=== PATIENT | male | born 1950 | race Two or more races ===

== ENCOUNTER 2020-08-02 08:55 | Emergency (ER) | payer OTHER, MEDICAID ==
[~2020-08-02] VITALS: Ht 170.2 cm; Wt 98.0 kg
[~2020-08-02 08:55] MED LIST: GABA-1181 PO; IBUP-2071 PO; INSU10VI3 SQ; LIRA0.6P SQ; LISI-894 PO
[2020-08-02 09:04] VITALS: BP 140/82
== END 2020-08-02 09:50 | disposition home or self-care (01) ==
LOC: EMS 08:55
DX: R05 Cough (principal); E11.9 Type 2 diabetes mellitus without complications; K21.9 Gastro-esophageal reflux disease without esophagitis; E78.00 Pure hypercholesterolemia, unspecified; Z20.822 Contact with and (suspected) exposure to COVID-19; Z79.899 Other long term (current) drug therapy
CPT/HCPCS: 99283; U0003